=== PATIENT | female | born 1955 | race Caucasian/White ===

== ENCOUNTER 2018-09-04 05:08 | Emergency (ER) | payer BC, SELFPAY ==
[2018-09-04 05:09] VITALS: BP 166/90; PULSE 84; RESP 16; TEMP 35.9; O2SAT 100; BMI 25.5
--- NOTE | 2018-09-04 05:29 | EKG12_ITS ---
Test Reason : CP Blood Pressure : / mmHG Vent. Rate : 077 BPM Atrial Rate : 077 BPM P-R Int : 164 ms QRS Dur : 078 ms QT Int : 382 ms P-R-T Axes : 054 -30 119 degrees QTc Int : 432 ms Normal sinus rhythm Left axis deviation T wave abnormality, consider lateral ischemia Abnormal ECG Confirmed by LISSY RITCHIE ([id number]), scientific editor DELORES DANGELO ([id number]) on 09/06/2018 9:58:34 AM Referred By: SHILOH Confirmed By:LISSY RITCHIE
[2018-09-04 06:08] LABS: Absolute Lymphocyte Count 1.53 X10^3/uL (0.83-4.51); Absolute Neutrophil Count 2.7 X10^3/uL (2.0-7.7); Basophil# 0.05 X10^3/uL; Eosinophil# 0.11 X10^3/uL; Eosinophils% 2.3 % (0-5); Hematocrit 36.2 % (37-47); Hemoglobin 12.1 g/dL (12.0-15.0); Lymphocyte # 1.53 X10^3/ul (4.0); Lymphocyte % 32.1 % (19-41); Mean Corp Hgb Conc 33.4 g/dL (32-36); Mean Corpuscular Hgb 31.9 pg (27.0-32.0); Mean Corpuscular Volume 95.5 fL (81-99); Mean Platelet Vol. 10.2 fl (6.2-12.0); Monocyte# 0.33 X10^3/uL; Monocyte% 6.9 % (0-10); NRBC Flagged by Analyzer 0 % (0-5); Neutrophil # 2.73 X10^3/uL (2.7-7.7); Neutrophil % 57.3 % (47-70); Platelet Count 187 K/mm3 (150-450); RBC Distribution Width CV 14.4 % (11.6-14.6); RBC Distribution Width SD 49.9 fl (35.1-43.9); Red Blood Count 3.79 M/mm3 (4.2-5.4); White Blood Count 4.8 K/mm3 (4.4-11.0)
[2018-09-04 06:42] VITALS: BP 156/75; PULSE 67; RESP 12; O2SAT 99
[2018-09-04 06:43] LABS: Anion Gap 10 (5-15); BUN 10 mg/dL (7-18); BUN/Creat Ratio 6.5 RATIO (10-20); Calcium,Total 9.7 mg/dL (8.5-10.1); Chloride 98 mmol/L (98-107); Creatinine, Serum 1.55 mg/dL (0.55-1.02); EST Glomerular Filtration Rate 36 mL/min (>60); Est Glom Filt Rate - Afr Amer 44 mL/min (>60); Estimated Creatinine Clearance 27.03 ml/min; Glucose 96 mg/dL (74-106); Potassium 4.4 mmol/L (3.5-5.1); Sodium Level 133 mmol/L (136-145)
--- NOTE | 2018-09-04 07:07 | ED.DCSUM_ITS ---
- ER Visit Summary Date of Service: 09/04/18 Chief Complaint: Palpitations History of Present Illness: The patient is a 62 F who presents with palpitations. This been going on for couple days. Is intermittent. It only occurs with activity. While at rest in bed is gone. No fevers chest pain shortness of breath nausea vomiting diarrhea. She denies any recent illness. Physical Examination: Afebrile blood pressure 166/90 vitals otherwise unremarkable Moist mucous membranes Heart regular rate and rhythm Lungs clear Abdomen soft Alert Test Results: EKG shows sinus rhythm at a rate of 77. Labs notable for creatinine of 1.55 and a TSH of 167. Emergency Department Course and Treatment: Patient's work-up as above notable for elevation of TSH consistent with hypothyroidism. Patient does note some long-standing fatigue but otherwise denies symptoms of hypothyroidism. I spoke to Dr. Lu who was covering for the patient's primary care physician who advised that she follow-up closely in the office. I advised the patient to call the office today for follow-up. She understands to return for new or worsening symptoms. Patient agreeable to this plan. All questions answered bedside. Patient discharged. Treatment Plan: [] Disposition: Discharge Impression: Hypothyroidism Palpitations This note was generated with [employer] dictation software. It may contain incorrect words, spelling, and punctuation that were not noted in review of the chart prior to signing ED Disposition - Plan for ED Patient: Referrals: Julia Enriquez MD [Primary Care Provider] -
--- NOTE | 2018-09-04 07:10 | ED.DEP ---
ED Disposition - Plan for ED Patient: Instructions: Palpitations, Hypothyroidism Referrals: Julia Enriquez MD [Primary Care Provider] -
[2018-09-04 07:20] VITALS: BP 139/78; PULSE 80; RESP 19; O2SAT 99
== END 2018-09-04 07:21 | disposition home or self-care (01) ==
LOC: ED 06:15
PROVIDERS: Emergency Provider Emergency Medicine; Family Provider Internal Medicine; PCP Internal Medicine
DX: E03.9 Hypothyroidism, unspecified (principal); R00.2 Palpitations; I10 Essential (primary) hypertension; Z79.899 Other long term (current) drug therapy
CPT/HCPCS: 80048; 84443; 85025; 93005; 99282; A4216

== ENCOUNTER 2018-09-07 04:47 | Emergency (ER) | payer BC, SELFPAY ==
[2018-09-07 04:48] VITALS: BP 162/80; PULSE 87; RESP 16; TEMP 36.6; O2SAT 98; BMI 23.6
--- NOTE | 2018-09-07 05:06 | ED.VISSUMM ---
- ER Visit Summary Date of Service: 09/07/18 Chief Complaint: Nausea and vomiting History of Present Illness: The patient is a 62 F who presents with nausea and vomiting. This began about 24 hours ago. She is had 3 episodes of nonbloody nonbilious emesis. She vomited shortly before arrival here and actually states she currently feels better. She currently has no complaints. There is been no associated abdominal pain or diarrhea. No fevers. She was seen recently for palpitations. She is followed up since that time. She was also found to be hypothyroid. She is been started on Synthroid and a cholesterol medication recently. Physical Examination: Afebrile vitals unremarkable Heart regular rate and rhythm Lungs clear Abdomen soft nontender nondistended Alert Test Results: Not indicated Emergency Department Course and Treatment: Given that the patient has a benign abdominal exam no tenderness no fevers no pain I do not believe any further diagnostic work-up is necessary. She was given Zofran as well as a prescription for a short course of the same but was instructed on signs and symptoms to monitor for and conditions which should prompt return here to the emergency department for reevaluation. All questions answered bedside and patient discharged. Treatment Plan: [] Disposition: Discharge Impression: Vomiting This note was generated with [employer] dictation software. It may contain incorrect words, spelling, and punctuation that were not noted in review of the chart prior to signing ED Disposition - Plan for ED Patient: Referrals: Julia Enriquez MD [Primary Care Provider] -
--- NOTE | 2018-09-07 05:07 | ED.DEP ---
ED Disposition - Plan for ED Patient: Instructions: VOMITING (6y-Adult) Prescriptions: Ondansetron [Zofran Odt] 4 mg PO Q8H PRN PRN #10 tab PRN Reason: Nausea Prescription Printed Referrals: Julia Enriquez MD [Primary Care Provider] -
[2018-09-07] MEDS: Ondansetron ODT 4 MG Tablet PO (05:15)
[2018-09-07 05:17] VITALS: BP 162/80; PULSE 87; RESP 16; O2SAT 98
== END 2018-09-07 05:21 | disposition home or self-care (01) ==
LOC: ED 05:12
PROVIDERS: Emergency Provider Emergency Medicine; Family Provider Internal Medicine; PCP Internal Medicine
DX: R11.2 Nausea with vomiting, unspecified (principal); E03.9 Hypothyroidism, unspecified; I10 Essential (primary) hypertension; E78.00 Pure hypercholesterolemia, unspecified; Z79.899 Other long term (current) drug therapy
CPT/HCPCS: 99283

== ENCOUNTER 2018-09-16 21:36 | Emergency (ER) | payer BC, SELFPAY ==
[2018-09-16 21:38] VITALS: BP 150/76; PULSE 77; RESP 15; TEMP 36.3; BMI 20.4
--- NOTE | 2018-09-16 22:20 | ED.DCSUM_ITS ---
- ER Visit Summary Date of Service: 09/16/18 Chief Complaint: Hematochezia History of Present Illness: The patient is a 62 F who presents with bright red blood per rectum. This initially occurred 2 days ago. This occurred again with a bowel movement today. She states that she did not notice blood in her stool but had some bright red bleeding. She denies any pain. No history of prior similar symptoms. She is not anticoagulated. No dizziness lightheadedness chest pain shortness of breath. Physical Examination: Afebrile vitals normal Moist mucous membranes Heart regular rate and rhythm Lungs clear Abdomen soft nontender nondistended Rectal exam nontender, no gross bleeding, no melena, no fissures or external hemorrhoids Alert Test Results: Labs notable for sodium 128, hemoglobin 11.4. INR normal. Emergency Department Course and Treatment: Patient does not have any evidence of hemorrhage. She is not hypotensive or tachycardic. Hemoglobin is 11.4. She does not have evidence of active gross bleeding. I do not feel she needs hospitalization for further emergent work-up but I did advise she follow-up closely as an outpatient. She will likely need further outpatient work-up such as colonoscopy. She was instructed on specific signs and symptoms to monitor for and conditions that should prompt return here to the emergency department for reevaluation. She was discharged. Treatment Plan: [] Disposition: Discharge Impression: Stable rectal bleeding This note was generated with [employer] dictation software. It may contain incorrect words, spelling, and punctuation that were not noted in review of the chart prior to signing ED Disposition - Plan for ED Patient: Referrals: Julia Enriquez MD [Primary Care Provider] -
[2018-09-16 22:43] LABS: Absolute Lymphocyte Count 1.31 X10^3/uL (0.83-4.51); Absolute Neutrophil Count 3.5 X10^3/uL (2.0-7.7); Basophil# 0.04 X10^3/uL; Basophil% 0.7 % (0-1); Eosinophils% 1.8 % (0-5); Hemoglobin 11.4 g/dL (12.0-15.0); Lymphocyte # 1.31 X10^3/ul (4.0); Lymphocyte % 23.8 % (19-41); Mean Corp Hgb Conc 34.5 g/dL (32-36); Mean Corpuscular Volume 95.7 fL (81-99); Mean Platelet Vol. 9.8 fl (6.2-12.0); Monocyte# 0.55 X10^3/uL; NRBC Flagged by Analyzer 0 % (0-5); Neutrophil # 3.49 X10^3/uL (2.7-7.7); Neutrophil % 63.3 % (47-70); Platelet Count 171 K/mm3 (150-450); RBC Distribution Width SD 49.6 fl (35.1-43.9); Red Blood Count 3.45 M/mm3 (4.2-5.4); White Blood Count 5.5 K/mm3 (4.4-11.0)
[2018-09-16 22:51] LABS: Prothrombin Time (Protime)PT. 13.2 SECONDS (11.7-14.9)
[2018-09-16 22:59] LABS: Anion Gap 7 (5-15); BUN 10 mg/dL (7-18); BUN/Creat Ratio 7.4 RATIO (10-20); Calcium,Total 8.8 mg/dL (8.5-10.1); Chloride 95 mmol/L (98-107); Creatinine, Serum 1.35 mg/dL (0.55-1.02); EST Glomerular Filtration Rate 42 mL/min (>60); Est Glom Filt Rate - Afr Amer 51 mL/min (>60); Estimated Creatinine Clearance 37.99 ml/min; Glucose 108 mg/dL (74-106); Potassium 3.6 mmol/L (3.5-5.1); Sodium Level 128 mmol/L (136-145)
--- NOTE | 2018-09-16 23:04 | ED.DEP ---
ED Disposition - Plan for ED Patient: Instructions: RECTAL BLEED, Stable Referrals: Julia Enriquez MD [Primary Care Provider] -
== END 2018-09-16 23:09 | disposition home or self-care (01) ==
LOC: ED 22:25
PROVIDERS: Emergency Provider Emergency Medicine; Family Provider Internal Medicine; PCP Internal Medicine
DX: K62.5 Hemorrhage of anus and rectum (principal); I10 Essential (primary) hypertension; E78.00 Pure hypercholesterolemia, unspecified; E03.9 Hypothyroidism, unspecified; Z79.899 Other long term (current) drug therapy
CPT/HCPCS: 80048; 85025; 85610; 99282

== ENCOUNTER 2018-09-23 14:17 | Emergency (ER) | payer BC, SELFPAY ==
[2018-09-23 14:18] VITALS: BP 115/66; PULSE 76; RESP 16; TEMP 36.7; O2SAT 99; BMI 23.4
--- NOTE | 2018-09-23 14:47 | ED.DCSUM_ITS ---
- ER Visit Summary Date of Service: 09/23/18 Chief Complaint: Near syncope History of Present Illness: The patient is a 62 F hypothyroidism, hypertension high cholesterol. [place] and felt like she might pass out. Denied any chest pain or headac he. No shortness of breath or abdominal pain. She did have dry heaves at the time. Currently says she is feeling better. No melena. No fever. Physical Examination: Older female no acute distress. Vital signs are stable and afebrile. HEENT exam unremarkable. Atraumatic. Pupils are unreactive light. Extra motions are intact. No facial droop. Normal speech. Neck non tender. Lungs to auscultation bilaterally. Heart regular rate and rhythm no murmur. Chest wall nontender. Abdomen soft and nontender. Normal bowel sounds no peritoneal signs. Patient moving all 4 extremities. Neurovascular intact. Equal internal controls analyst strength. Equal dorsi plantarflexion. No edema. Neurologically she is awake and alert with no focal motor or sensory deficits. Fingertip to nose w ithin normal limits bilaterally. NIH 0. Test Results: EKG sinus rhythm rate of 76 no signs of AK, ischemia or any dysrhythmia. White count 7. Hemoglobin of 12 which is her baseline. Electrolytes unremarkable sodium 131. Gap is 6. Creatinine 1.3 which again is her baseline. Troponin is normal. Orthostatic vital signs are normal. Emergency Department Course and Treatment: Heat exposure with near syncopal event. Has a normal exam. Treatment Plan: Repeat exam patient doing well at 1630. She will be discharged home. Disposition: Discharge Impression: Acute near syncope Heat exhaustion This note was generated with [employer] dictation software. It may contain incorrect words, spelling, and punctuation that were not noted in review of the chart prior to signing ED Disposition - Plan for ED Patient: Referrals: Julia Enriquez MD [Primary Care Provider] -
[2018-09-23 14:59] VITALS: BP 138/73; BP 139/70; BP 141/81; PULSE 65; PULSE 69; PULSE 71
[2018-09-23 15:23] LABS: Absolute Lymphocyte Count 0.84 X10^3/uL (0.83-4.51); Absolute Neutrophil Count 6.1 X10^3/uL (2.0-7.7); Basophil# 0.05 X10^3/uL; Basophil% 0.7 % (0-1); Eosinophil# 0.05 X10^3/uL; Eosinophils% 0.7 % (0-5); Hematocrit 35.9 % (37-47); Lymphocyte # 0.84 X10^3/ul (4.0); Mean Corp Hgb Conc 33.4 g/dL (32-36); Mean Corpuscular Hgb 32.2 pg (27.0-32.0); Mean Corpuscular Volume 96.2 fL (81-99); Mean Platelet Vol. 9.8 fl (6.2-12.0); Monocyte# 0.53 X10^3/uL; Monocyte% 6.9 % (0-10); NRBC Flagged by Analyzer 0 % (0-5); Neutrophil # 6.13 X10^3/uL (2.7-7.7); Neutrophil % 80.2 % (47-70); Platelet Count 183 K/mm3 (150-450); RBC Distribution Width CV 14.2 % (11.6-14.6); RBC Distribution Width SD 50.4 fl (35.1-43.9); Red Blood Count 3.73 M/mm3 (4.2-5.4); White Blood Count 7.6 K/mm3 (4.4-11.0)
[2018-09-23 15:34] LABS: Anion Gap 6 (5-15); BUN 13 mg/dL (7-18); BUN/Creat Ratio 9.8 RATIO (10-20); Calcium,Total 9.3 mg/dL (8.5-10.1); Chloride 99 mmol/L (98-107); Creatinine, Serum 1.32 mg/dL (0.55-1.02); EST Glomerular Filtration Rate 43 mL/min (>60); Est Glom Filt Rate - Afr Amer 52 mL/min (>60); Estimated Creatinine Clearance 31.74 ml/min; Glucose 106 mg/dL (74-106); Sodium Level 131 mmol/L (136-145)
--- NOTE | 2018-09-23 16:08 | EKG12_ITS ---
Test Reason : GENERAL ILLNESS Blood Pressure : / mmHG Vent. Rate : 076 BPM Atrial Rate : 076 BPM P-R Int : 198 ms QRS Dur : 078 ms QT Int : 386 ms P-R-T Axes : 050 -03 060 degrees QTc Int : 434 ms Normal sinus rhythm Normal ECG Confirmed by GERDA PAZ, LAMONT ([id number]), photographic editor JOAO MOSCOSO ([id number]) on 10/01/2018 1:25:47 PM Referred By: KAELA Confirmed By:SUE LORENZ MD
[2018-09-23 16:24] VITALS: BP 143/64; PULSE 70; RESP 15; O2SAT 100
--- NOTE | 2018-09-23 16:32 | ED.DEP ---
ED Disposition - Plan for ED Patient: Disposition: Home or Assisted Living Instructions: NEAR SYNCOPE, Unknown, Heat Exhaustion Referrals: Julia Enriquez MD [Primary Care Provider] - As Needed Additional Instructions: Fluids and rest. Follow-up if not improving.
[2018-09-23 16:36] VITALS: BP 144/75; PULSE 64; RESP 15; O2SAT 100
== END 2018-09-23 16:48 | disposition home or self-care (01) ==
PROVIDERS: Emergency Provider Emergency Medicine; Family Provider Internal Medicine; PCP Internal Medicine
DX: R55 Syncope and collapse (principal); T67.5XXA Heat exhaustion, unspecified, initial encounter; X30.XXXA Exposure to excessive natural heat, initial encounter; Y93.9 Activity, unspecified; Y92.9 Unspecified place or not applicable; E03.9 Hypothyroidism, unspecified; E78.00 Pure hypercholesterolemia, unspecified; I10 Essential (primary) hypertension; Z79.899 Other long term (current) drug therapy
CPT/HCPCS: 80048; 84484; 85025; 93005; 99285; A4216

== ENCOUNTER 2019-12-29 22:53 | Observation (INO) | payer BC, SELFPAY ==
[2019-12-29 22:55] VITALS: BP 133/65; PULSE 82; RESP 15; TEMP 36; O2SAT 98; BMI 22.0
[2019-12-29 23:30] VITALS: BP 124/79; PULSE 76; RESP 15; O2SAT 100
[2019-12-29 23:32] LABS: Absolute Lymphocyte Count 0.89 X10^3/uL (0.83-4.51); Absolute Neutrophil Count 8.8 X10^3/uL (2.0-7.7); Basophil# 0.04 X10^3/uL; Basophil% 0.4 % (0-1); Eosinophil# 0.06 X10^3/uL; Eosinophils% 0.6 % (0-5); Hematocrit 38.6 % (37-47); Hemoglobin 12.2 g/dL (12.0-15.0); Lymphocyte # 0.89 X10^3/ul (4.0); Lymphocyte % 8.6 % (19-41); Mean Corp Hgb Conc 31.6 g/dL (32-36); Mean Corpuscular Volume 91.7 fL (81-99); Mean Platelet Vol. 9.9 fl (6.2-12.0); Monocyte# 0.48 X10^3/uL; Monocyte% 4.6 % (0-10); NRBC Flagged by Analyzer 0 % (0-5); Neutrophil # 8.84 X10^3/uL (2.7-7.7); Neutrophil % 85.5 % (47-70); Platelet Count 195 K/mm3 (150-450); RBC Distribution Width CV 13.1 % (11.6-14.6); RBC Distribution Width SD 44.7 fl (35.1-43.9); Red Blood Count 4.21 M/mm3 (4.2-5.4); White Blood Count 10.3 K/mm3 (4.4-11.0)
[2019-12-29 23:49] LABS: ALB/GLOB Ratio 0.8 RATIO (0.9-2.4); AST(SGOT) 235 U/L (15-37); Alanine Aminotransfer ALT/SGPT 165 U/L (13-56); Albumin, Serum 3.2 g/dL (3.2-5.0); Alkaline Phosphatase 195 U/L (45-117); Anion Gap 6 (5-15); BUN 14 mg/dL (7-18); BUN/Creat Ratio 13.1 RATIO (10-20); Calcium,Total 8.8 mg/dL (8.5-10.1); Chloride 111 mmol/L (98-107); Creatinine, Serum 1.07 mg/dL (0.55-1.02); EST Glomerular Filtration Rate 55 mL/min (>60); Est Glom Filt Rate - Afr Amer 66 mL/min (>60); Estimated Creatinine Clearance 38.15 ml/min; Globulin 3.8 g/dL (2.2-4.2); Glucose 132 mg/dL (74-106); Lipase 222 U/L (73-393); Potassium 3.7 mmol/L (3.5-5.1); Sodium Level 141 mmol/L (136-145)
[2019-12-29 23:54] LABS: Mucous, Urine 0 SEEN /hpf (<or=2+)
[2019-12-29 23:57] LABS: Glucose, Dipstick Normal (Normal); Ketone-Dipstick 5 mg/dl (Negative); Leukocyte Esterase-Dipstick 100 /ul (Negative); Nitrite-Dipstick Negative (Negative); Occult Blood-Urine 10 /ul (Negative); Protein-Dipstick 30 mg/dl (Negative); Urine Urobilinogen 4 mg/dl (Normal)
[2019-12-30 00:01] LABS: Color, Urine Yellow (Yellow); Urine Bilirubin Dipstick 1 mg/dL (Negative); Urine Clarity Clear (Clear)
[2019-12-30 00:04] LABS: Bacteria RARE /hpf (None Seen); Red Blood Cells-Urine 0-5 SEEN /hpf (0-5); Squamous Epithelial Cells - UA 0-5 SEEN /hpf (5-10); White Blood Cells 5-10 SEEN /hpf (0-5)
--- NOTE | 2019-12-30 00:40 | ED.DCSUM_ITS ---
- ER Visit Summary Date of Service: 12/30/19 Chief Complaint: Abdominal pain History of Present Illness: The patient is a 64 F with upper abdominal pain for the past 5 days intermittently. Pain radiates straight through to her back. Worse with food. Better with Toradol from EMS on the way here. She had associated nausea and vomiting. Physical Examination: Afebrile and vital signs unremarkable. Upper hemiabdomen tenderness without guarding or rebound. Skin normal without jaundice. Test Results: CBC normal. Creatinine 1.07. Glucose 132. Alkaline phosphatase 195, ALT 165, AST 235, lipase normal. Covid pending. CT abdomen showed multiple stones in her gallbladder with pericholecystic fluid concerning for cholecystitis. Emergency Department Course and Treatment: Patient declined pain medicine here. She felt better with Zofran and Toradol given by EMS. Work-up showed elevation of her liver enzymes. She has findings on her CT concerning for acute cholecystitis. This fits the clinical picture. Patient was discussed with Dr. Stephens. We will treat with Zosyn. N.p.o. Admit. Covid 19 test is pending. Treatment Plan: As above Disposition: Admission Impression: Acute cholecystitis, transaminitis This note was generated with [employer] dictation software. It may contain incorrect words, spelling, and punctuation that were not noted in review of the chart prior to signing ED Disposition - Plan for ED Patient: Referrals: Julia Enriquez MD [Primary Care Provider] -
[2019-12-30 00:48] VITALS: BP 139/54; PULSE 74; RESP 15; TEMP 36.8; O2SAT 100
[2019-12-30 02:01] VITALS: BMI 20.4
[2019-12-30 02:04] VITALS: BP 119/54; PULSE 74; RESP 18; TEMP 36.8; O2SAT 98
[2019-12-30 02:16] VITALS: BMI 20.4
[2019-12-30 02:24] LABS: Probe Check PASS; Specimen Processing Control PASS
[2019-12-30] MEDS: 0.9% Normal Saline 1,000 ML 125 ML IV (02:54)
[2019-12-30 06:26] VITALS: BP 115/59; PULSE 68; RESP 16; TEMP 36.8; O2SAT 98
--- NOTE | 2019-12-30 07:36 | PCM.HP.BLA ---
History and Physical Date of Admission: 12/30/19 Chief Complaint: abdominal pain History of Present Illness: 64 y/o WF presents with cholelithiasis. She notes right upper quadrant and epigastric abdominal pain. She states that she has had twinges of pain in the area for years. However, in the past 1-2 days, noted severe pain that prompted visit to [facility] ED. She was initially tested as positive for COVID, however, subsequent testing was negative, patient is asymptomatic. She states that presently she has minimal to no pain. She did have multiple episode of emesis yesterday. Denies fevers. Past Medical History: hypothyroidism hypertension Past Surgical History: csection nasal surgery Medications: atorvastatin levothyroxine metoprolol flonase cozaar Allergies: amoxacillin Social history: TOB use denies Review of Systems: General - denies fevers Cardiovascular denies chest pain Pulmonary denies shortness of breath, denies coughing up blood Gastrointestinal as per HPI, denies blood in stools Neurological denies numbness/weakness of extremities, denies seizurea, denies history of stroke Genitourinary denies burning with urination, denies blood in urine Hematological denies spontaneous/prolonged bleeding Skin denies open non healing wounds Musculoskeletal no new joint/bone pain Endocrine denies diabetes Psychological denies hallucinations Physical examination: Vital signs Temp 98.6 BP 106/53 RR 16 HR 68 General WD/WN WF in no apparent distress, alert and oriented, not septic appearing HEENT Normocephalic. EOM intact with sclera clear and no icterus noted. Neck is supple with no jugular venous distention noted. Trachea is midline. Lungs normal breath sounds. No rales/rhonchi/wheezing noted. No labored breathing noted, such as retractions. No cough heard. Heart normal heart sounds. No rubs/clicks/murmurs noted. Normal size and location by auscultation. Abdomen soft and benign. Normal bowel sounds, slight tenderness in right upper quadrant but no Lindsey's sign Extremities no calf tenderness or swelling noted. No pitting edema noted. No obvious deformity noted. Genitourinary/Rectal deferred Skin normal skin integrity. Neurological non focal Psychological normal affect, patient is calm and appropriate LFTs - AST 394, ALT 357, Alkphos 187, tbili normal at 0.8, normal WBC 10.3K with 85% segs Impression: cholecystitis, cholelithiasis Discussion/Plan: I have discussed the above with the patient. Patient initially tested positive for COVID, now negative - patient offered stay in hospital for gallbladder surgery versus going home to be scheduled as outpatient, patient prefers latter. I have offered the patient the procedure of laparoscopic cholecystectomy, possible cholangiograms. I have explained the procedure to the patient. I have counseled the patient as to the risks of the procedure, including but not limited to: infection, bleeding, injury to any blood vessels/nerves, scar tissue, injury to any intrabdominal organs, injury to kidney/ureters, injury to bowel/bladder, injury to the common bile duct/biliary tree, bile leakage, intraabdominal abscess/bleeding, hernias at incisional sites, wound infections, possible open procedure, complications of anesthesia, postoperative pneumonia/cardiac problems/blood clots etc. the patient understands. Will schedule as outpatient. Will d/c to home on antibiotics and pain medications - I called in [facility] to local pharmacy because of allergy to amoxacillin. I have answered all questions to the patient?s satisfaction and the patient has no further questions.
--- NOTE | 2019-12-30 07:55 | DCINST_ITS ---
Discharge Diet: - - low fat diet Discharge Activity: Return to Normal Activity, May not drive while taking narcotic pain medications. Allergies/Adverse Reactions: Allergies No Known Allergies Allergy (Verified 09/16/18 21:41) Medications to take at Discharge Losartan Potassium 25 mg PO DAILY 09/04/18 Atorvastatin Calcium 40 mg PO DAILY 09/07/18 Levothyroxine [Synthroid] 100 mcg PO DAILY 09/07/18 Metoprolol Succinate [Toprol Xl] 25 mg PO DAILY 12/29/19 Amoxicillin/Potassium Clav [Augmentin 875-125 Tablet] 1 ea PO BID 7 Days #14 tab 12/30/19 Hydrocodone Bitart/Apap 5-325 [[place] 5MG-325MG] 1 tablet PO Q8H PRN PRN 4 Days #12 tablet 12/30/19 The following prescriptions were given: Amoxicillin/Potassium Clav [Augmentin 875-125 Tablet] 1 ea PO BID 7 Days #14 tab Transmission Status: Pending to [id number] Hydrocodone Bitart/Apap 5-325 [[place] 5MG-325MG] 1 tablet PO Q8H PRN PRN 4 Days #12 tablet PRN Reason: Pain Transmission Status: Received by [id number] Primary Care Physician: Julia Enriquez MD [Primary Care Provider] - Test Results: Test results from this visit will be discussed in further detail at your follow- up appointment, if applicable. Please Follow Up With: Yumiko Stephens MD - When: I will contact you to set you up for surgery in the near future
[2019-12-30 08:47] LABS: AST(SGOT) 394 U/L (15-37); Alanine Aminotransfer ALT/SGPT 357 U/L (13-56); Albumin, Serum 2.8 g/dL (3.2-5.0); Alkaline Phosphatase 187 U/L (45-117); Globulin 3.2 g/dL (2.2-4.2)
[2019-12-30 09:25] VITALS: BP 105/50; PULSE 65; RESP 16; TEMP 36.6; O2SAT 100
--- NOTE | 2019-12-30 10:28 | PHA.DC.MR ---
Pharmacy Service has performed discharge medication reconciliation for this patient. Patient medications reviewed, pt in COVID precautions, not entering rooms in order to preserve PPE at this time. Home Medications Losartan Potassium 25 mg PO DAILY 09/04/18 Atorvastatin Calcium 40 mg PO DAILY 09/07/18 Levothyroxine [Synthroid] 100 mcg PO DAILY 09/07/18 Metoprolol Succinate [Toprol Xl] 25 mg PO DAILY 12/29/19 Amoxicillin/Potassium Clav [Augmentin 875-125 Tablet] 1 ea PO BID 7 Days #14 tab 12/30/19 Hydrocodone Bitart/Apap 5-325 [[place] 5MG-325MG] 1 tab PO Q8H PRN PRN 4 Days #12 tab 12/30/19 The patient's discharge medication list was reviewed for discrepancies and discrepancies were resolved.
[2019-12-30 11:30] VITALS: BP 106/53; PULSE 68; RESP 18; TEMP 37; O2SAT 99
--- NOTE | 2019-12-30 23:16 | CT_ITS ---
STUDY: CT ABDOMEN AND PELVIS WITH CONTRAST REASON FOR EXAM: Female, 64 years old. UPPER ABDOMEN AND BACK PAIN -- HX:HTN,HLD,HYPOTHYROID, RADIATION DOSAGE (If Supplied By Facility): CTDIvol = ( 12.37 ) mGy, DLP = ( 365.79 ) mGycm TECHNIQUE: Transaxial images were obtained from the dome of the diaphragm to the symphysis pubis without oral contrast. IV 100mL Isovue-370 was administered. Sagittal and coronal images were reconstructed. Individualized dose optimization techniques were used for this CT. COMPARISON: None. FINDINGS: The visualized lung bases are unremarkable. The visualized portions of the heart are within normal limits. Normal liver. Multiple gallstones with fluid surrounding the gallbladder wall. Otherwise unremarkable biliary system. Normal spleen. Normal pancreas. Normal bilateral adrenal glands. Normal right kidney. Mild scarring involving the left mid lower renal pole otherwise normal left kidney. Decompressed stomach otherwise unremarkable. Normal small intestine. Normal colon. There is non-visualization of the appendix. Normal abdominal aorta. Normal inferior vena cava. Normal retroperitoneum. Urinary bladder is decompressed. There is atrophy of the uterus. Normal abdominal wall. There are diffuse degenerative changes of the visualized lumbar spine. CT/Abdomen/Pelvis W IV Cont ONLY IMPRESSION: Fluid surrounding the gallbladder with multiple stones, cannot exclude acute cholecystitis. If indicated, this may be further assessed with right upper quadrant ultrasound. Electronically Signed: Chasity Adler MD at 0:27 EST , Service support ,
== END 2019-12-30 07:52 | disposition home or self-care (01) ==
LOC: ED 12-30 00:36 → PCU 12-30 06:44
PROVIDERS: Admitting Provider Surgery; Emergency Provider Emergency Medicine; PCP Internal Medicine; Visit Provider Surgery
DX: U07.1 COVID-19 (principal); K81.0 Acute cholecystitis; R74.01 Elevation of levels of liver transaminase levels; E03.9 Hypothyroidism, unspecified; I10 Essential (primary) hypertension; Z79.899 Other long term (current) drug therapy
CPT/HCPCS: 36415; 74177; 80053; 80076; 81001; 83690; 85025; 87426; 87635; 96361; 96365; 99218; 99285; J7030; J7050; Q9967; A4216; G0378; U0002